=== PATIENT | female | born 1950 | race Caucasian/White ===

== ENCOUNTER 2023-08-16 07:27 | Outpatient (CLI) | payer MEDICARE, OTHER ==
[~2023-08-16] VITALS: Ht 154.9 cm; Wt 91.6 kg
[2023-08-16 09:01] VITALS: BP 153/87
[2023-08-16] MEDS ORDERED: GABA300C PO (09:25)
[2023-08-16] MEDS ORDERED: LORA10TA7 PO (09:25)
[2023-08-16] MEDS ORDERED: FURO40TA4 PO (09:25)
[2023-08-16] MEDS ORDERED: METO-333 PO (09:25)
[2023-08-16] MEDS ORDERED: CELE-91 PO (09:25)
[2023-08-16] MEDS ORDERED: ACET-2267 PO (09:25)
[2023-08-16] MEDS ORDERED: VIT1TABL26 PO (09:25)
[2023-08-16] MEDS ORDERED: CHOL200074 PO (09:25)
[2023-08-16] MEDS ORDERED: BUTA-235 PO (09:25)
[2023-08-16] MEDS ORDERED: LOSA50TA63 PO (09:25)
[2023-08-16] MEDS ORDERED: CELE400C16 PO (09:25)
[2023-08-16] MEDS ORDERED: LEVO50CA4 PO (09:25)
[2023-08-16] MEDS ORDERED: ATOR40TA70 PO (09:25)
[2023-08-16] MEDS ORDERED: ASCO100024 PO (09:25)
[2023-08-16] MEDS ORDERED: PANT40TA52 PO (09:25)
--- NOTE | 2023-08-16 09:52 | Physical Therapy Pre-Op Eval ---
PT Pre-Surgical Assessment Type of Surgery Type of Surgery: Prior Level of Function Current Living Status: Alone (.0) Locomotion (Upon Admit): Independent Distance: Unlimited PLOF DME: Front Wheeled Walker, Straight Cane, Crutches Subjective Home: Apartment Current Living Status: Alone Entry Into Home: Level Entry Steps Into Home: 0 Objective Patient reports right knee pain at 7/10 currently. Motor Control Motor Control: Motor Control WNL ROM ROM: WFL, except focal deficit Strength Strength: WFL Transfers Transfers (B, C, W/C) (FIM): 6 Gait Gait (FIM): 6 Gait Distance (FIM): 6 Distance: 100' Gait Assistive Device: FWW Right Lower Extremity: Right Full Weight Bearing Left Lower Extremity: Left Full Weight Bearing Treatment Rendered Treatment: Patient instructed in assistive device, supported ambulation. Patient instructed in and given written program of ROM and strengthening exercises to be preformed post-op. Patient instructed in movement precautions where applicable. Patient demonstrates understandings of post-operative therapy protocol including gait pattern and exercise program. Pre-operative instruction completed; await physical therapy orders after surgery. Treatment Goal Met: Yes Assessment Goals Acheived: I Ambulation w/ FWW, Understands P-op Precaut, I Post-op E xercises Charges/GCodes Time In: 917 Time Out: 927 Total Billed Treatment Time: 10 Total Billed Treatment Visit, PRIYA BOWLSE PT Aug 16, 2023 09:52
[2023-08-16 10:14] LABS: CLARITY,URINE CLEAR; COLOR,URINE YELLOW
[2023-08-16 10:15] LABS: BACTERIA,URINE FEW /HPF; BILIRUBIN,URINE NEGATIVE (NEGATIVE); GLUCOSE, URINE (UA) NEGATIVE (NEGATIVE); KETONES,URINE NEGATIVE (NEGATIVE); LEUKOCYTE ESTERASE ,URINE NEGATIVE (NEGATIVE); NITRITE,URINE NEGATIVE (NEGATIVE); PROTEIN,URINE 1+ (NEGATIVE); RBC,URINE RARE /HPF; WBC,URINE 0-2 /HPF
[2023-08-16 10:16] LABS: HEMOGLOBIN 12.8 g/dL (11.5-16.0); MEAN PLATELET VOLUME 8.9 fL (9.0-12.2)
[2023-08-16 10:18] LABS: BASOPHILS % (AUTO) 1 % (0-10); EOSINOPHILS # (AUTO) 0.3 10^3/uL (0.0-0.3); EOSINOPHILS % (AUTO) 6 % (0-10); HEMATOCRIT 39 % (35-52); LYMPHOCYTES # (AUTO) 1.3 10^3/uL (1.0-4.0); LYMPHOCYTES % (AUTO) 22 % (12-44); MEAN CORPUSCULAR HEMOGLOBIN 28 pg (25-34); MEAN CORPUSCULAR HGB CONC 33 g/dL (32-36); MEAN CORPUSCULAR VOLUME 86 fL (80-99); MONOCYTES # (AUTO) 0.5 10^3/uL (0.0-1.0); MONOCYTES % (AUTO) 9 % (0-12); NEUTROPHILS # (AUTO) 3.7 10^3/uL (1.8-7.8); NEUTROPHILS % (AUTO) 62 % (42-75); PLATELET COUNT 209 10^3/uL (130-400); WHITE BLOOD COUNT 5.9 10^3/uL (4.3-11.0)
[2023-08-16 10:29] LABS: PROTHROMBIN TIME PATIENT 13.3 SEC (12.2-14.7)
[2023-08-16 10:36] LABS: ALBUMIN 3.9 GM/DL (3.2-4.5); BILIRUBIN,TOTAL 0.8 MG/DL (0.1-1.0); CALCIUM 8.9 MG/DL (8.5-10.1); CREATININE SERUM 0.74 MG/DL (0.60-1.30); POTASSIUM 3.9 MMOL/L (3.6-5.0); TOTAL PROTEIN 5.9 GM/DL (6.4-8.2)
--- NOTE | 2023-08-16 14:41 | Diagnostic Imaging Report ---
EXAMINATION: Chest 2 view HISTORY: Preoperative exam COMPARISON: None available. FINDINGS: The lungs are clear without edema or pneumonia. No pleural effusion or pneumothorax. Heart size is normal. IMPRESSION: 1. Clear lungs. Dictated by: Dictated on workstation # [id number]
== END 2023-08-16 15:13 ==
LOC: PREOP 07:27
PROVIDERS: ATTEND Orthopaedic Surgery
DX: Z01.818 Encounter for other preprocedural examination (principal); Z01.811 Encounter for preprocedural respiratory examination; M17.11 Unilateral primary osteoarthritis, right knee
CPT/HCPCS: 36415; 71046; 80053; 81000; 85025; 85610; 86850; 86900; 86901; 87081; 87088; 93005

== ENCOUNTER 2023-08-23 06:03 | Inpatient (IN) | payer MEDICARE, OTHER ==
--- NOTE | 2023-08-16 17:01 | HISTORY AND PHYSICAL ---
This will be for inpatient admission on 08/23/2023 for right total knee arthroplasty. HISTORY: The patient is a 72-year-old female with longstanding right knee pain. She has undergone treatment with extensive injections, but reports that it is not helping anymore. She reports activity limitations because of the knee. Due to functional impairment and failure to improve with conservative measures, the patient has elected to proceed with surgical intervention. REVIEW OF SYSTEMS: No chest pain. No shortness of breath. No dysuria. PAST MEDICAL HISTORY: Sleep apnea, herniated disk, lumbar spine, hypothyroidism, hypertension, hyperlipidemia. PAST SURGICAL HISTORY: Right knee arthroscopy, salivary gland removal, , hysterectomy, right trigger thumb, bilateral carpal tunnel and coronary stent placement. FAMILY HISTORY: Noncontributory. PRIMARY CARE PROVIDER: [facility]. MEDICATIONS: Loratadine, pantoprazole, metoprolol, losartan, levothyroxine, furosemide, atorvastatin. ALLERGIES: PENICILLIN, TETANUS AND BEE STINGS. SOCIAL HISTORY: The patient drinks alcohol rarely and denies tobacco use. LABORATORY DATA: Radiographs reveal severe varus alignment of her right knee with marked patellofemoral joint space narrowing as well. PHYSICAL EXAMINATION: GENERAL: The patient is well-developed, well-nourished, in no acute distress. HEENT: Normocephalic, atraumatic. Pupils are equal, round, reactive to light. Oropharynx is clear. NECK: Supple, with no lymphadenopathy. LUNGS: Clear to auscultation bilaterally. HEART: Regular rate and rhythm. ABDOMEN: Soft, nontender, nondistended. EXTREMITIES: The right knee demonstrates varus alignment. There is no varus or valgus laxity. She has patellofemoral crepitus and pain with patellar loading. She has a slight effusion. Range of motion 0/4/115. She ambulates with an antalgic gait. IMPRESSION: Severe right knee osteoarthritis. PLAN: Right total knee arthroplasty. The risks, benefits, options, ramifications and recovery were discussed at length with the patient. She understands and wishes to proceed. Job ID: [id number] DocumentID: [id number] Dictated Date: 08/07/2023 12:06:50 Assistant Softball Coach Date: 08/07/2023 14:46:00 Dictated By: ASCENCION GASPAR MD
[~2023-08-23] VITALS: Ht 154.9 cm; Wt 91.6 kg
[2023-08-23] VITALS (13 sets, daily range): BP systolic 106–147; BP diastolic 52–78
[~2023-08-23 06:03] MED LIST: ACET-2267 PO; ASCO100024 PO; ATOR40TA70 PO; BUTA-235 PO; CELE-91 PO; CELE400C16 PO; CHOL200074 PO; FURO40TA4 PO; GABA300C PO; LEVO50CA4 PO; LORA10TA7 PO; LOSA50TA63 PO; METO-333 PO; PANT40TA52 PO; VIT1TABL26 PO
[2023-08-23] MEDS: LACTATED RINGERS 1,000 ML 1,000 ML IV PRN ×2 (07:09→08:02)
[2023-08-23] MEDS ORDERED: ONDANSETRON INJECTION 4 MG/2 ML (SDV) IV PRN (07:15)
[2023-08-23] MEDS ORDERED: diphenhydrAMINE INJ 50 MG/ML VIAL IVP PRN (07:15)
[2023-08-23] MEDS ORDERED: CEFUROXIME INJECTION 1,500 MG in NS (IVPB) 50 ML 50 ML IV ONE (07:15)
[2023-08-23] MEDS ORDERED: TEMAZEPAM 15 MG (RESTORIL) CAP PO PRN (07:15)
[2023-08-23] MEDS ORDERED: TRANEXAMIC ACID 100 MG/ML 10 ML INJECTION ONE (07:18)
[2023-08-23] MEDS ORDERED: fentaNYL INJECTION 100 MCG/2 ML VIAL ONE (07:18)
[2023-08-23] MEDS ORDERED: MIDAZOLAM INJ 2 MG/2 ML VIAL ONE (07:18)
[2023-08-23] MEDS ORDERED: INTRA-ARTICULAR IU ONE ×5 (07:30)
--- NOTE | 2023-08-23 07:32 | Progress Note-Pre Operative ---
Pre-Operative Progress Note Date of Available H&P: Aug 16, 2023 Date H&P Reviewed: Aug 23, 2023 Time H&P Reviewed: 07:11 Changes from last HP none Pre-Operative Diagnosis: right knee primary osteoarthritis ASCENCION GASPAR MD Aug 23, 2023 07:31
--- NOTE | 2023-08-23 07:33 | Progress Note-Post Operative ---
Post-Operative Progess Note Surgeon (s)/Hypercil Core Transformer Assembler (s) Surgeon ASCENCION GASPAR MD Hypercil Core Transformer Assembler: Randall Mckeon Pre-Operative Diagnosis right knee primary osteoarthritis Post-Operative Diagnosis right knee primary osteoarthritis Procedure & Operative Findings Date of Procedure 08/23/23 Procedure Performed/Findings right total knee arthroplasty Anesthesia Type spinal Estimated Blood Loss Estimated blood loss (mL): minimal Specimens/Packing Specimens Removed none Packing: none ASCENCION GASPAR MD Aug 23, 2023 07:32
--- NOTE | 2023-08-23 07:35 | D/C HH Face to Face Order ---
D/C Face to Face Orders Reconcile Patient Problems Problems Reviewed?: Yes Instructions for Patient Via [facility], Patient Instructions/FollowUp: three weeks Physician to follow Patient: three weeks Discharge Diet for Home: Regular Diet Patient Data-Allergies,Ht & Wt Patient Allergies: Coded Allergies: Penicillins (Verified Allergy, Severe, HIVES, 08/16/23) tetanus toxoid, adsorbed (Verified Allergy, Severe, HIVES, 08/16/23) Home Health Need/Face to Face Date of Face to Face: Aug 23, 2023 Clinical Findings: Muscle weakness, Pain with ambulation, Unsteady gait I have seen Pt araj-[id number]-mjuk: Yes Discharged To: Home Diagnosis/Conditions: right total knee arthroplasty Patient is Homebound due to: Pain w/ambulation Homebound Status Due to the above stated illness, injury or surgical procedure (medical condition or diagnosis) and associated clinical findings, the patient is fátima ebound because of his/her inability to leave home except with aid of a supportive device and/or person AND leaving the home requires a considerable and taxing effort or is medically contraindicated. Pt req the following assistanc: Walker Home Health Nursing Orders Home Health Services Order: Physical Therapy-Evaluate & Treat DC right knee osiris and apply steris trips 09/06/23 Therapy Orders Therapy Orders: Physical Therapy, PT to assess for OT Therapy Specific Orders: Eval assistive deivces, Teach enviro modifications/s afety, Gait training, Increase strength/endurance, Provider maintenance therapy, Restore ROM Certify Stmt I certify that this patient is under my care and that I, a nurse practitioner or a physician; a social research assistant working with me, had a face to face encounter that - meets the physician face to face encounter requirements with this patient as dated. ASCENCION GASPAR MD Aug 23, 2023 07:35
[2023-08-23] MEDS ORDERED: ROPIVACAINE 5 MG/ML 30ML VIAL ONE (08:43)
--- NOTE | 2023-08-23 10:16 | Progress Note ---
Standard Progress Note Progress Notes/Assess & Plan Date Seen by a Provider: Aug 23, 2023 Time Seen by a Provider: 09:31 Progress/Assessment & Plan post op check spinal in effect radiographs--HW well positioned without fracture RLE--2 plus DP pulse with brisk cap refill s/p R TKA mobize as able ASCENCION GASPAR MD Aug 23, 2023 10:16
--- NOTE | 2023-08-23 10:27 | Diagnostic Imaging Report ---
INDICATION: Postop knee COMPARISON: None. FINDINGS: Multiple radiographic views of the right knee were obtained. Expected postoperative changes are seen from right knee total arthroplasty. Femoral and tibial components appear well-seated. There is no evidence of periprosthetic fracture. No unexpected radiopaque foreign bodies are identified. IMPRESSION: Expected postsurgical changes from right knee total arthroplasty, as described above. No evidence of hardware compromise. Dictated by: Dictated on workstation # [id number]
--- NOTE | 2023-08-23 10:32 | Consultation - Hospitalist ---
GERMAINE LANDRUM MD, RESIDENT 08/23/23 1031: HPI History of Present Illness: HPI/Chief Complaint CC: Right knee pain Patient is a 73-year-old female with a past medical history of hypothyroidism, hypertension, hyperlipidemia, coronary artery disease status post stent placement back in 2016/2017, sleep apnea who presented for right knee arthroplasty completed by Dr. Lynn at this morning. Patient states she has been having right knee pain that has been ongoing for 10 years thus requiring surgical intervention. Patient is otherwise asymptomatic at this time, is not having any pain in her right knee as of yet. She is recovering well postoperatively and does not have any concerns today. Source: patient Exam Limitations: no limitations Date Seen 08/23/23 Attending Physician Center/[facility] PCP Admitting Physician: Demetrio Lynn MD Attending Physician: Demetrio Lynn MD Referring Physician Date of Admission Aug 23, 2023 at 06:03 Home Medications & Allergies Home Medications Reviewed patient Home Medication Reconciliation performed by pharmacy medication reconciliations library acquisitions technician and/or nursing. Patients Allergies have been reviewed. Allergies Allergies Coded Allergies Penicillins (Verified Allergy, Severe, HIVES, 08/16/23) tetanus toxoid, adsorbed (Verified Allergy, Severe, HIVES, 08/16/23) Past Kfbmsxx-Zluvhf-Otinyr Hx Patient Social History Tobacco Use?: No Smoking Status: Never a Smoker Smokeless Tobacco Frequency: Never a User Use of E-Cig and/or Vaping Kyle: Never a User Substance use?: No Alcohol Use?: No Pt feels they are or have been: No Immunizations Up To Date Tetanus Booster (TDap): Less Than 5 Years Hepatitis A: Yes Hepatitis B: Yes Current Status Advance Directives: No Communicates: Verbally Primary Language: Prydein[place] Preferred Spoken Language: Prydeinig Is interpretation needed?: No Sensory deficits: Vision impairment Implanted or Applied Medical D: CPAP, Stents Past Medical History Surgeries: Section, Coronary Stent, Hysterectomy, Oophorectomy, Orthopedic Sleep Apnea Currently Using CPAP: Yes Heart Attack, High Cholesterol, Hypertension 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 Sexually Transmitted Disease: No Bladder Infection Gastroesophageal Reflux, Diverticulosis, Polyps Arthritis Hypothyroidsim Loss of Vision: Denies Hearing Impairment: Denies Blood Disorders: No Adverse Reaction/Blood Tranf: No Review of Systems Constitutional: No fever, No malaise EENTM: No nose congestion Respiratory: No cough, No dyspnea on exertion, No short of breath Cardiovascular: No chest pain, No edema, No palpitations Gastrointestinal: No abdominal pain, No constipation, No diarrhea, No nausea, No vomiting Genitourinary: No dysuria Musculoskeletal: No joint pain Physical Exam Physical Exam Vital Signs Vital Signs - First Documented Capillary Refill : Less Than 3 Seconds Height, Weight, BMI Height: '" Weight: lbs. oz. kg; 38.17 BMI Method: General Appearance: No Apparent Distress HEENT: Normal ENT Inspection Neck: Full Range of Motion, Normal Inspection Respiratory: Chest Non Tender, Lungs Clear, Normal Breath Sounds, No Accessory Muscle Use, No Respiratory Distress Cardiovascular: Regular Rate, Rhythm, No Edema, No Murmur Gastrointestinal: Normal Bowel Sounds, Non Tender, Soft Extremity: No Pedal Edema, Other (Right lower extremity wrapped in dressing, ice for swelling) Neurologic/Psychiatric: Alert, Oriented x3 Skin: Normal Color, Warm/Dry Results Results/Procedures Labs Patient resulted labs reviewed. Assessment/Plan Assessment and Plan Assess & Plan/Chief Complaint Patient is a 73-year-old female status post right knee arthroplasty on 08/23/2023. Diagnosis/Problems Diagnosis/Problems (1) Osteoarthritis of right knee Status: Acute Assessment & Plan: Status post right knee arthroplasty on 08/23/2023. Plan: Weightbearing as tolerated with assistance PT/OT per primary team Pain management per primary team (2) Hypothyroidism Status: Chronic Assessment & Plan: History of hypothyroidism, on levothyroxine. Plan: We will restart home medication once med rec has been completed (3) Hypertension Status: Chronic Assessment & Plan: Blood pressures within normal range currently. We will hold home medications for now. (4) Hyperlipidemia Status: Chronic Assessment & Plan: Restart home medications once med rec has been completed. (5) Sleep apnea Status: Chronic Assessment & Plan: BiPAP at night (6) Coronary artery disease Status: Chronic Assessment & Plan: Status post stent in 2017. Patient states she is not on any antiplatelet therapy at this time. Recommend restarting home medications once med rec has been completed. JARON GOLDSTEIN DO 08/23/231951: HPI History of Present Illness: HPI/Chief Complaint Chief complaint: Right knee replacement HPI: This is a 73-year-old female who had an uncomplicated right knee replacement today and reports pain is well controlled Denies any nausea Source: patient Exam Limitations: no limitations Past Hnuhnoh-Pcoliv-Czzcqp Hx Patient Social History Marrital Status: single Employed/Student: retired Past Medical History High Cholesterol, Hypertension Review of Systems Constitutional: see HPI Musculoskeletal: joint pain Physical Exam Physical Exam General Appearance: No Apparent Distress, WD/WN, Chronically ill Respiratory: Lungs Clear, Normal Breath Sounds Cardiovascular: Regular Rate, Rhythm Neurologic/Psychiatric: Alert, Oriented x3 Assessment/Plan Assessment and Plan Assess & Plan/Chief Complaint Assessment: Right knee arthroplasty Hypertension Hypothyroidism Plan: Supportive care Check labs in a.m. Pain control I personally performed the mayes portions of the visit, discussed case with resident and concur with resident documentation of history, physical exam, assessment and treatment plan unless otherwise noted. GERMAINE LANDRUM MD, RESIDENT Aug 23, 2023 10:31 JARON GOLDSTEIN DO Aug 23, 2023 19:52
[2023-08-23] MEDS: CELECOXIB 400 MG CAPSULE PO SCH (11:48)
[2023-08-23] MEDS: ASPIRIN enteric coated 81MG TABLET PO SCH (11:49)
[2023-08-23] MEDS: SENNA W/DOCUSATE TABLET PO SCH ×2 (11:49→20:17)
[2023-08-23] MEDS: NS IV 1000 ML 1,000 ML IV SCH (11:50)
--- NOTE | 2023-08-23 13:56 | Physical Therapy Evaluation ---
PT Evaluation-General Medical Diagnosis Admission Date Aug 23, 2023 at 06:03 Medical Diagnosis: RTKA Onset Date: Aug 23, 2023 Therapy Diagnosis Therapy Diagnosis: gait deficit strength deficit Precautions Precautions/Isolations: Fall Prevention, Standard Precautions Weight Bear Status Right Lower Extremity: Right Weight Bearing/Tolerated Left Lower Extremity: Left Full Weight Bearing Referral Physician: Dr. Lynn Reason for Referral: Evaluation/Treatment Social History Home: Apartment Current Living Status: Alone Entry Into Home: Level Entry Prior Prior Level of Function SCALE: Activities may be completed with or without assistive devices. 1-Nwgtghzpja-nimykup completes the activity by him/herself with no assistance from a helper. 5-Set-up or Clean-up Assistance-helper sets up or cleans up; patient completes activity. [place] assists only prior to or following the activity. 4-Supervision or Touching Assistance-helper provides verbal cues and/or touching/steadying and/or contact guard assistance as patient completes activity. Assistance may be provided throughout the activity or intermittently. 3-Partial/Moderate Assistance-helper does LESS THAN HALF the effort. [place] lifts, holds or supports trunk or limbs, but provides less than half the effort. 2-Substantial/Maximal Assistance-helper does MORE THAN HALF the effort. [place] lifts or holds trunk or limbs and provides more than half the effort. 6-Pnytsqrnp-tccfdw does ALL the effort. Patient does none of the effort to complete the activity. Or, the assistance of 2 or more helpers is required for the patient to complete the activity. If activity was not attempted, code reason: 7-Patient Refused. 9-Not Applicable-not attempted and the patient did not perform the activity before the current illness, exacerbation or injury. 10-Not Attempted due to Environmental Limitations-(lack of equipment, weather restraints, etc.). 88-Not Attempted due to Medical Conditions or Safety Concerns. Bed Mobility: 6 Transfers (B,C,W/C): 6 Gait: 6 Stairs: 6 Indoor Mobility (Ambulation): Independent Stairs: Independent Prior Devices Use: None PT Evaluation-Current Subjective Patient lying supine in bed upon PT arrival, agreeable to treatment. Patient rates pain at 0/10 currently. Objective Patient Orientation: Person, Place, Time, Situation Attachments: Motley Catheter, Polar Pack, IV ROM/Strength ROM Lower Extremities Right knee flexion 90 degrees, extension lacks 10 degrees. All other planes WFLs BLEs Strength Lower Extremities Right knee flexion 3/5, extension 3/5. All other planes WFLs BLEs Sensory Vision: Wears Glasses Hearing: Functional Sensation Right Lower Extremit: Intact Sensation Left Lower Extremity: Intact Transfers Roll Left to Right (QC): 4 Sit to Lying (QC): 4 Lying to Sitting/Side of Bed(Q: 4 Sit to Stand (QC): 4 Chair/Ikn-hg-Xqpgd Xfer(QC): 4 Balance Sitting Static: Good Sitting Dynamic: Good Standing Static: Fair Standing Dynamic: Fair Assessment/Needs Patient tolerated treatment well. She performs all observed bed mobility and transfers with SBA/CGA. Patient ambulates 50 feet with FWW, with SBA and verbal cues for safety, progression, gait pattern and use of FWW. Patient in chair post treatment with all needs met, nursing notified, call light in hand and daughter in the room. Rehab Potential: Good PT Correction Goals Carbon Paper Coating Machine Setter Goals PT Carbon Paper Coating Machine Setter Goals Time Frame: Oct 07, 2023 Roll Left & Right (QC): 6 Sit to Lying (QC): 6 Lying-Sitting on Side/Bed(QC): 6 Sit to Stand (QC): 6 Chair/Bpk-wv-Hczfp Xfer(QC): 6 Toilet Transfer (QC): 6 Does the Patient Walk: Yes Walk 10 feet (QC): 6 Walk 50ft with 2 Turns (QC): 6 Walk 150 ft (QC): 6 PT Plan Problem List Problem List: Activity Tolerance, Functional Strength, Safety, Balance, Gait, Transfer, Bed Mobility, ROM Treatment/Plan Treatment Plan: Continue Plan of Care Treatment Plan: Bed Mobility, Education, Functional Activity Janelle, Functional Strength, Group Therapy, Gait, Safety, Therapeutic Exercise, Transfers Treatment Duration: Oct 07, 2023 Frequency: 11 times per week Estimated Hrs Per Day: .25 hour per day Patient and/or Family Agrees t: Yes Safety Risks/Education Patient Education: Gait Training, Transfer Techniques Teaching Recipient: Patient Teaching Methods: Demonstration, Discussion Response to Teaching: Verbalize Understanding, Return Demonstration Time Time In: 1313 Time Out: 1326 DATE: Aug 23, 2023 Total Billed Treatment Time: 13 Total Billed Treatment Visit, PRIYA CRONIN PT Aug 23, 2023 13:56
[2023-08-23] MEDS: oxyCODONE/ACETAMINOPHEN 5/325MG TABLET PO PRN ×2 (14:09→20:19)
[2023-08-23] MEDS: CEFUROXIME INJECTION 750 MG in NS (IVPB) 50 ML 50 ML IV SCH ×2 (15:27→23:08)
--- NOTE | 2023-08-23 17:05 | OPERATIVE REPORT ---
DATE OF SERVICE: 08/23/2023 PREOPERATIVE DIAGNOSIS: Right knee primary osteoarthritis. POSTOPERATIVE DIAGNOSIS: Right knee primary osteoarthritis. PROCEDURE: Right total knee arthroplasty. SURGEON: Demetrio Gaspar MD FREIGHT AND PASSENGER AGENT: Randall Mckeon, who assisted throughout the procedure and closed the incision. ANESTHESIA: Spinal by Cyndi Camarena CRNA. TOURNIQUET TIME: Approximately 52 minutes at 300 mmHg. ESTIMATED BLOOD LOSS: Minimal. DRAINS: None. COMPLICATIONS: None. POSTOPERATIVE PLAN: Routine total knee arthroplasty protocol. The patient was transferred to the recovery room awake and stable condition. MATERIALS: MicroPort cemented size 4 femur, cemented size 4 tibia with 10 mm insert and cemented size 29 patella. STATEMENT OF MEDICAL NECESSITY: The patient is a 73-year-old female with longstanding progressive right knee pain. Radiographs revealed severe tricompartmental osteoarthritis. She has undergone treatment with injections, anti-inflammatories, arthroscopy and rest without relief. Due to functional impairment and failure to improve with conservative measures, the patient elected to proceed with surgical intervention. DESCRIPTION OF PROCEDURE: After risks and benefits of the procedure were discussed and questions were answered and informed consent signed and placed on chart, the operative site was confirmed in the preoperative holding area initialed by surgeon. The patient was then transferred to the operating room. After adequate levels of spinal anesthetic were obtained, a timeout was called, confirming the operative site. The right lower extremity was prepped and draped in the usual sterile fashion. Back after the patient was transferred to recovery room awake and stable condition. The right lower extremity was prepped and draped in the usual sterile fashion with the leg elevated, tourniquet inflated to 300 mmHg. Standard anterior approach was utilized. Hemostasis was obtained with cautery. Medial parapatellar arthrotomy was performed and a 1 cm cuff was left on the patella for later reattachment. A portion of the fat pad was resected. The ACL was resected and a subperiosteal release was performed on the proximal medial tibia, being careful to stay on the bony surface. The intramedullary guide was passed into the femoral canal. The distal cutting block was placed. Distal cut was made. The femur sized to a size 4. The 4 cutting block was placed parallel to the epicondylar axis and cuts were made from posterior to anterior. A subperiosteal release was then carefully performed on the posterior distal femur, being careful to stay on the bony surface. Intramedullary guide was then passed into the tibia. The cutting block was placed. Drop jt transected the intermalleolar axis and cut was made. The 4 baseplate was placed. Drop jt transected the intermalleolar axis. This was pinned into position and then prepared with the drill and keel punch. Femoral trial was placed and the trochlear cut was made. A 10 mm trial insert was placed and the patella was resected using the freehand technique and resecting 10 mm off the undersurface. Peg guide was placed and the peg holes were drilled. The 29 trial was inserted. The knee was taken through range of motion. Full extension was easily obtained under 20 degrees of flexion with gravity was easily obtained. The patella tracked well. There was no anterior/posterior or medial/lateral laxity in flexion or extension. The trials were removed. The joint was irrigated with pulse lavage. The periarticular block was placed in the posterior capsule, medial and lateral retinaculum extensor mechanism and subcutaneous tissues. The bone ends were irrigated and dried and the tibial baseplate was cemented into position. Excessive cement was removed. The superior surface was irrigated and dried and the polyethylene insert was placed. Distal femur was irrigated and dried and the femoral prosthesis was cemented into position. Excessive cement was removed. The undersurface of the patella was irrigated and dried. The patellar button was cemented into position. Excessive cement was removed. Once the cement had cured, the knee was taken through range of motion. Full extension was easily obtained under 20 degrees of flexion with gravity was easily obtained. There was no anterior/posterior or medial/lateral laxity in flexion or extension. The joint was further irrigated with pulse lavage. In addition, a total of 450 mL of Irrisept was used throughout the procedure. The joint was further irrigated with pulse lavage. The arthrotomy was closed with #2 Tevdek in wbqwzq-ly-okcpa interrupted fashion. Knee was flexed. The repair was stable. The subcutaneous tissues were irrigated with Irrisept and pulse lavage and 0 Vicryl was used to close deep subcutaneous layer, 2-0 Vicryl for the superficial subcutaneous layer, osiris used on the skin. A soft dressing was applied. The tourniquet was deflated. The patient was transferred to recovery room awake and in stable condition. Job ID: [id number] DocumentID: [id number] Dictated Date: 08/23/2023 09:11:04 Teacher Learning Disabled Date: 08/23/2023 17:03:00 Dictated By: DEMETRIO GASPAR MD
[2023-08-23] MEDS ORDERED: GABAPENTIN 300 MG CAPSULE PO SCH (21:00)
[2023-08-24 03:10] VITALS: BP 113/69
[2023-08-24 04:59] LABS: BASOPHILS % (AUTO) 0 % (0-10); EOSINOPHILS # (AUTO) 0.3 10^3/uL (0.0-0.3); EOSINOPHILS % (AUTO) 4 % (0-10); HEMATOCRIT 35 % (35-52); HEMOGLOBIN 11.2 g/dL (11.5-16.0); LYMPHOCYTES % (AUTO) 10 % (12-44); MEAN CORPUSCULAR HEMOGLOBIN 28 pg (25-34); MEAN CORPUSCULAR HGB CONC 32 g/dL (32-36); MEAN CORPUSCULAR VOLUME 87 fL (80-99); MEAN PLATELET VOLUME 8.5 fL (9.0-12.2); MONOCYTES # (AUTO) 0.9 10^3/uL (0.0-1.0); MONOCYTES % (AUTO) 10 % (0-12); NEUTROPHILS # (AUTO) 7.2 10^3/uL (1.8-7.8); NEUTROPHILS % (AUTO) 76 % (42-75); PLATELET COUNT 224 10^3/uL (130-400); WHITE BLOOD COUNT 9.4 10^3/uL (4.3-11.0)
[2023-08-24 05:08] LABS: ALBUMIN 3.2 GM/DL (3.2-4.5)
[2023-08-24 05:09] LABS: POTASSIUM 3.9 MMOL/L (3.6-5.0)
[2023-08-24 05:10] LABS: CALCIUM 8.2 MG/DL (8.5-10.1)
[2023-08-24 05:13] LABS: BILIRUBIN,TOTAL 0.9 MG/DL (0.1-1.0)
[2023-08-24 05:15] LABS: CREATININE SERUM 0.71 MG/DL (0.60-1.30)
[2023-08-24] MEDS: NS IV 1000 ML 1,000 ML IV SCH (05:26)
--- NOTE | 2023-08-24 07:58 | Physical Therapy Daily Note ---
PT Daily Note-Current Subjective Patient agrees to PT. Reports 6/10 right knee pain with pain medication issued. Pain Numeric Pain Scale: 6 Location: Right Location Body Site: Knee Pain Description: Acute Section J - Health Conditions 1. Rarely or not at all 2. Occasionally 3. Frequently 4. Almost constantly 8. Unable to answer Pain Effect on Sleep: 1 Pain Interference with Therapy: 1 Pain Interference w/Day-to-Day: 1 Transfers SCALE: Activities may be completed with or without assistive devices. 4-Qdeowgalgu-ktcubao completes the activity by him/herself with no assistance from a helper. 5-Set-up or Clean-up Assistance-helper sets up or cleans up; patient completes activity. Lando assists only prior to or following the activity. 4-Supervision or Touching Assistance-helper provides verbal cues and/or touching/steadying and/or contact guard assistance as patient completes activ ity. Assistance may be provided throughout the activity or intermittently. 3-Partial/Moderate Assistance-helper does LESS THAN HALF the effort. Lando lifts, holds or supports trunk or limbs, but provides less than half the effort. 2-Substantial/Maximal Assistance-helper does MORE THAN HALF the effort. Lando lifts or holds trunk or limbs and provides more than half the effort. 7-Evgonnyvw-njigan does ALL the effort. Patient does none of the effort to complete the activity. Or, the assistance of 2 or more helpers is required for the patient to complete the activity. If activity was not attempted, code reason: 7-Patient Refused. 9-Not Applicable-not attempted and the patient did not perform the activity before the current illness, exacerbation or injury. 10-Not Attempted due to Environmental Limitations-(lack of equipment, weather restraints, etc.). 88-Not Attempted due to Medical Conditions or Safety Concerns. Lying to Sitting/Side of Bed(Q: 6 Sit to Stand (QC): 6 Chair/Uwn-du-Fwqyx Xfer(QC): 6 Weight Bearing Right Lower Extremity: Right Weight Bearing/Tolerated Left Lower Extremity: Left Full Weight Bearing Gait Training Distance: 180' Walk 10 feet (QC): 5 Walk 50 ft with 2 Turns(QC): 5 Walk 150 ft (QC): 5 Gait Assistive Device: FWW slow, antalgic Exercises Supine Ex: Ankle pumps, Quad Set, Heel Slides, Straight leg raise Supine Reps: 15 Seated Therapy Exercises: Long arc quads Seated Reps: 15 Assessment Patient progressing with treatment plan and reports compliance with HEP. Patient highly motivated with progress. Plan dismissal on this date. 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 Tipping Machine Operator Automatic Goals 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 Time Frame: Oct 07, 2023 Roll Left & Right (QC): 6 Sit to Lying (QC): 6 Lying-Sitting on Side/Bed(QC): 6 Sit to Stand (QC): 6 Chair/Pjw-ah-Ghuev Xfer(QC): 6 Toilet Transfer (QC): 6 Does the Patient Walk: Yes Walk 10 feet (QC): 6 Walk 50ft with 2 Turns (QC): 6 Walk 150 ft (QC): 6 PT Plan Treatment/Plan Treatment Plan: Continue Plan of Care Treatment Plan: Bed Mobility, Education, Functional Activity Janelle, Functional Strength, Group Therapy, Gait, Safety, Therapeutic Exercise, Transfers Treatment Duration: Oct 07, 2023 Frequency: 11 times per week Estimated Hrs Per Day: .25 hour per day Patient and/or Family Agrees t: Yes Time Time In: 710 Time Out: 735 DATE: Aug 24, 2023 Total Billed Treatment Time: 25 Total Billed Treatment 1 visit EX 14 min GT 11 min VAMSHI LIRA PT Aug 24, 2023 07:57
[2023-08-24 07:59] VITALS: BP 145/66
[2023-08-24] MEDS ORDERED: ENOXAPARIN 30 MG/0.3 ML SYRINGE SC SCH (08:00)
--- NOTE | 2023-08-24 08:00 | Progress Note ---
Standard Progress Note Progress Notes/Assess & Plan Date Seen by a Provider: Aug 24, 2023 Time Seen by a Provider: 07:51 Progress/Assessment & Plan post op check spinal in effect radiographs--HW well positioned without fracture RLE--2 plus DP pulse with brisk cap refill s/p R TKA mobize as able Final Diagnosis no complaints Laboratory Tests Test 08/24/23 04:51 Range/Units White Blood Count 9.4 4.3-11.0 10^3/uL Red Blood Count 4.01 3.80-5.11 10^6/uL Hemoglobin 11.2 L 11.5-16.0 g/dL Hematocrit 35 35-52 % Mean Corpuscular Volume 87 80-99 fL Mean Corpuscular Hemoglobin 28 25-34 pg Mean Corpuscular Hemoglobin Concent 32 32-36 g/dL Red Cell Distribution Width 13.7 10.0-14.5 % Platelet Count 224 130-400 10^3/uL Mean Platelet Volume 8.5 L 9.0-12.2 fL Immature Granulocyte % (Auto) 0 % Neutrophils (%) (Auto) 76 H 42-75 % Lymphocytes (%) (Auto) 10 L 12-44 % Monocytes (%) (Auto) 10 0-12 % Eosinophils (%) (Auto) 4 0-10 % Basophils (%) (Auto) 0 0-10 % Neutrophils # (Auto) 7.2 1.8-7.8 10^3/uL Lymphocytes # (Auto) 1.0 1.0-4.0 10^3/uL Monocytes # (Auto) 0.9 0.0-1.0 10^3/uL Eosinophils # (Auto) 0.3 0.0-0.3 10^3/uL Basophils # (Auto) 0.0 0.0-0.1 10^3/uL Immature Granulocyte # (Auto) 0.0 0.0-0.1 10^3/uL Sodium Level 135 135-145 MMOL/L Potassium Level 3.9 3.6-5.0 MMOL/L Chloride Level 105 98-107 MMOL/L Carbon Dioxide Level 24 21-32 MMOL/L Anion Gap 6 5-14 MMOL/L Blood Urea Nitrogen 19 H 7-18 MG/DL Creatinine 0.71 0.60-1.30 MG/DL Estimat Glomerular Filtration Rate 90 BUN/Creatinine Ratio 27 Glucose Level 119 H 70-105 MG/DL Calcium Level 8.2 L 8.5-10.1 MG/DL Corrected Calcium 8.8 8.5-10.1 MG/DL Total Bilirubin 0.9 0.1-1.0 MG/DL Aspartate Amino Transf (AST/SGOT) 13 5-34 U/L Alanine Aminotransferase (ALT/SGPT) 16 0-55 U/L Alkaline Phosphatase 70 40-136 U/L Total Protein 5.0 L 6.4-8.2 GM/DL Albumin 3.2 3.2-4.5 GM/DL RLE--flexion to 90 intact DF and PF Of ankle and toes sensation intact to light touch throughout s/p RTKA doing well DC home later today ASCENCION GASPAR MD Aug 24, 2023 08:00
[2023-08-24] MEDS: SENNA W/DOCUSATE TABLET PO SCH (08:03)
[2023-08-24] MEDS: ASPIRIN enteric coated 81MG TABLET PO SCH (08:03)
[2023-08-24] MEDS: CELECOXIB 400 MG CAPSULE PO SCH (08:03)
[2023-08-24] MEDS: oxyCODONE/ACETAMINOPHEN 5/325MG TABLET PO PRN ×2 (08:04→12:00)
--- NOTE | 2023-08-24 09:15 | Progress Note ---
GERMAINE LANDRUM MD, RESIDENT 08/24/23 0915: Subjective HPI/CC On Admission Date Seen by Provider: Aug 24, 2023 Time Seen by Provider: 08:40 Chief complaint: Right knee replacement HPI: This is a 73-year-old female who had an uncomplicated right knee replacement today and reports pain is well controlled Denies any nausea Subjective/Events-last exam Patient doing well this morning. Will be discharged from orthopedic standpoint. She has no concerns otherwise. Review of Systems General: No Fatigue HEENT: No Head Aches Pulmonary: No Dyspnea, No Cough Cardiovascular: No: Chest Pain, Palpitations, Edema Gastrointestinal: No: Nausea, Vomiting, Diarrhea, Constipation Neurological: No: Weakness Objective Exam Vital Signs Vital Signs Date Time Temp Pulse Resp B/P (MAP) Pulse Ox O2 Delivery O2 Flow Rate FiO2 08/24/23 07:59 36.8 82 17 145/66 (92) 91 Room Air 08/23/23 19:59 2.00 Capillary Refill : Less Than 3 Seconds General Appearance: No Apparent Distress HEENT: Normal ENT Inspection Neck: Full Range of Motion Respiratory: Chest Non Tender, Lungs Clear, Normal Breath Sounds, No Accessory Muscle Use, No Respiratory Distress Cardiovascular: Regular Rate, Rhythm, No Edema, No Murmur Gastrointestinal: Normal Bowel Sounds, Non Tender, Soft Extremity: No Pedal Edema, Other (Right knee wrapped in pressure dressing) Neurologic/Psychiatric: Alert, Oriented x3 Skin: Normal Color, Warm/Dry Results/Procedures Lab Laboratory Tests 08/24/23 04:51 Patient resulted labs reviewed. Assessment/Plan Assessment and Plan Assess & Plan/Chief Complaint Patient is a 73-year-old female status post right knee arthroplasty on 08/23/2023. Diagnosis/Problems Diagnosis/Problems (1) Osteoarthritis of right knee Status: Acute Assessment & Plan: Status post right knee arthroplasty on 08/23/2023. Plan: Weightbearing as tolerated with assistance PT/OT per primary team Pain management per primary team Discharge today per primary team (2) Hypothyroidism Status: Chronic Assessment & Plan: History of hypothyroidism, on levothyroxine. Continue home meds. (3) Hypertension Status: Chronic Assessment & Plan: Blood pressures within normal range currently. Continue home meds. (4) Hyperlipidemia Status: Chronic Assessment & Plan: Continue home meds. (5) Sleep apnea Status: Chronic Assessment & Plan: BiPAP at night (6) Coronary artery disease Status: Chronic Assessment & Plan: Status post stent in 2016/2017. Patient states she is not on any antiplatelet therapy at this time. Continue home meds. JARON GOLDSTEIN DO 08/25/23 0448: Subjective Subjective/Events-last exam Patient seen and examined Reviewed meds and labs Objective Exam General Appearance: No Apparent Distress, WD/WN, Chronically ill Assessment/Plan Assessment and Plan Assess & Plan/Chief Complaint Discharge home I personally performed the mayes portions of the visit, discussed case with resident and concur with resident documentation of history, physical exam, assessment and treatment plan unless otherwise noted. GERMAINE LANDRUM MD, RESIDENT Aug 24, 2023 09:15 JARON GOLDSTEIN DO Aug 25, 2023 04:48
[2023-08-24 11:44] VITALS: BP 150/70
[2023-08-24 12:50] VITALS: BP 150/70
--- NOTE | 2023-08-24 16:07 | Anesthesia-Regional Post-Op ---
Regional Patient Condition Mental Status: Alert, Oriented x3 Circulation: Same as Pre-Op Headache: Absent Sensation: Full Recovery Motor Block: Absent Post Op Complications Complications None Follow Up Care/Instructions Patient Instructions None needed. Anesthesia/Patient Condition Patient is already discharged to home but she was doing well, no complaints, stable vital signs, no apparent adverse anesthesia problems per nursing prior to her discharge to home. No complications reported per nursing. LESLEE SIN DO Aug 24, 2023 16:07
== END 2023-08-24 12:50 | disposition home health service (06) | DRG 470 ==
LOC: 4TH 06:03 → SURG 06:04 → 4TH 10:05
PROVIDERS: ADMIT Orthopaedic Surgery; ATTEND Orthopaedic Surgery
PROC: 5A09357 Assistance with Respiratory Ventilation, Less than 24 Consecutive Hours, Continuous Positive Airway Pressure (ICD-10-PCS; 2023-08-23)
PROC: 0SRC0J9 Replacement of Right Knee Joint with Synthetic Substitute, Cemented, Open Approach (ICD-10-PCS; principal; 2023-08-23 07:30)
DX: M17.12 Unilateral primary osteoarthritis, left knee (principal); E03.9 Hypothyroidism, unspecified; I10 Essential (primary) hypertension; G47.30 Sleep apnea, unspecified; I25.10 Atherosclerotic heart disease of native coronary artery without angina pectoris; Z95.5 Presence of coronary angioplasty implant and graft; I25.2 Old myocardial infarction; E78.00 Pure hypercholesterolemia, unspecified; K21.9 Gastro-esophageal reflux disease without esophagitis
CPT/HCPCS: 36415; 73560; 80053; 85025; 86850; 86900; 86901